=== PATIENT | female | born 1945 | race Caucasian/White ===

== ENCOUNTER 2023-08-24 10:19 | Emergency (ER) | payer OTHER, SELFPAY ==
[2023-08-24 10:35] VITALS: BP 143/88
--- NOTE | 2023-08-24 11:15 | ED.GENMED ---
History of Present Illness
<Kelly Kerr PA-C - Last Filed: 08/24/23 18:53>
General
Chief Complaint: Flank Pain
Source: patient
Exam Limitations: none
Time Seen by Provider: 08/24/23 10:53
Nursing documentation reviewed up to this point in time: agreed with
Travel History
Have you had any contact with someone who has COVID-19?: No
Do you have any symptoms of coronavirus? Fever > 100 degrees, chills, cough, shortness of breath, sore throat, loss of taste or smell, muscle aches, or headache?: No
History of Present Illness
History of Present Illness:
Patient is a 78-year-old female with history atrial fibrillation on Eliquis, CKD stage III presenting for evaluation of acute onset left lower back/flank pain. Symptoms started 2 days ago and have progressively been worsening. Patient endorses a
constant ache in her left lower back with an occasional sharp, stabbing pain worse with movement. Patient denies any alleviating factors. She denies any radiation of pain into the abdomen or down into the legs. Patient denies any fever,
nausea/vomiting, diarrhea, dysuria or hematuria. No chest pain or shortness of breath. No recent illness/virus. She has taken Tylenol for pain which leads to very minimal improvement.
Patient has no personal history of kidney stones. Her daughter does have a history of kidney stone and believes her symptoms are very similar to what she is experienced in the past.
Phy Exam
<Kelly Kerr PA-C - Last Filed: 08/24/23 18:53>
Physical Exam
Physical Exam:
General: Well appearing and non-toxic
Vitals: Mildly hypertensive, otherwise vital signs stable; afebrile
HEENT: Atraumatic, normocephalic; pupils equal round reactive light bilaterally, protecting airway
Neck: appears supple, no JVD, no midline spinal tenderness
CV: Irregular rhythm, regular rate, no evidence of cyanosis
Resp: No evidence of respiratory distress, lungs clear bilaterally
Abd: Soft, nontender in all 4 quadrants, non-distended
Extremities: No deformities, no evidence of cyanosis or edema; DP pulses palpable and strong bilaterally; strength 5 out of 5 in upper and lower extremities
Back: Tender to palpation left lower lumbar spine just to left of midline
Neuro: alert and oriented x 3, speech normal, no focal motor deficits, sensation intact;
Psych: Normal affect
Skin: Intact, no rashes or bruising
Course
<Kelly Kerr PA-C - Last Filed: 08/24/23 18:53>
Orders/Labs/Results
Orders:
Orders
08/24/23 11:42
Complete Blood Count/With Diff Urgent
Comprehensive Metabolic Panel Urgent
Serum Osmolality Urgent
08/24/23 11:44
Lumbar Spine, 2 or 3 View [CR Lumbar Spine 2 Or 3 Views] Urgent
Comment:
Reason For Exam: left paraspinal tenderness
08/24/23 11:54
Osmolality, Random Urine Urgent
Date Specimen was Collected: 08/24/23
Time Specimen was Collected: 11:52
Urinalysis Reflex To Culture Urgent
Date Specimen was Collected: 08/24/23
Time Specimen was Collected: 11:52
Urine Microscopic Reflex Cult Urgent
Urine Sodium Urgent
Date Specimen was Collected: 08/24/23
Time Specimen was Collected: 11:52
08/24/23 12:24
Add On- LAB Urgent
Tests Added?: serum osmolality, urine sodium, urine osmolality
08/24/23 14:20
Acetaminophen [Tylenol] 650 mg PO NOW STA
08/24/23 14:25
Acetaminophen [Tylenol] 650 mg .ROUTE .STK-MED ONE
Abnormal Lab Results
08/24/23 08/24/23
11:42 11:54
Absolute Neuts (auto) 7.0 H 10^3/uL
(1.4-6.5)
Lymphocytes % 19.4 L %
(20.5-51.1)
Sodium 126 L mmol/L
(135-145)
Potassium 3.4 L mmol/L
(3.5-5.1)
Chloride 90 L mmol/L
(98-107)
BUN 18 H mg/dl
(7-17)
Creatinine 1.1 H mg/dL
(0.6-1.0)
Glucose 108 H mg/dl
(70-99)
Serum Osmolality 268 L mOsm/kg
(275-300)
Leukocyte Esterase Rfl Trace A
(Negative)
Urine Sodium 98 H mmol/L
(30-90)
08/24/23 11:42
08/24/23 11:42
Vital Signs
Initial and Last Documented VS:
Initial Vital Signs
Temp Pulse Resp BP Pulse Ox
97.8 F 72 20 143/88 100
08/24/23 10:35 08/24/23 10:35 08/24/23 10:35 08/24/23 10:35 08/24/23 10:35
Last Documented Vital Signs
Temp Pulse Resp BP Pulse Ox
97.8 F 72 20 143/88 100
08/24/23 10:35 08/24/23 10:35 08/24/23 10:35 08/24/23 10:35 08/24/23 10:35
<Toy Arriaga, DO - Last Filed: 08/24/23 13:48>
Orders/Labs/Results
Orders:
Orders
08/24/23 11:42
Complete Blood Count/With Diff Urgent
Comprehensive Metabolic Panel Urgent
Serum Osmolality Urgent
08/24/23 11:44
Lumbar Spine, 2 or 3 View [CR Lumbar Spine 2 Or 3 Views] Urgent
Comment:
Reason For Exam: left paraspinal tenderness
08/24/23 11:54
Osmolality, Random Urine Urgent
Date Specimen was Collected: 08/24/23
Time Specimen was Collected: 11:52
Urinalysis Reflex To Culture Urgent
Date Specimen was Collected: 08/24/23
Time Specimen was Collected: 11:52
Urine Microscopic Reflex Cult Urgent
Urine Sodium Urgent
Date Specimen was Collected: 08/24/23
Time Specimen was Collected: 11:52
08/24/23 12:24
Add On- LAB Urgent
Tests Added?: serum osmolality, urine sodium, urine osmolality
08/24/23 14:20
Acetaminophen [Tylenol] 650 mg PO NOW STA
08/24/23 14:25
Acetaminophen [Tylenol] 650 mg .ROUTE .STK-MED ONE
Abnormal Lab Results
08/24/23 08/24/23
11:42 11:54
Absolute Neuts (auto) 7.0 H 10^3/uL
(1.4-6.5)
Lymphocytes % 19.4 L %
(20.5-51.1)
Sodium 126 L mmol/L
(135-145)
Potassium 3.4 L mmol/L
(3.5-5.1)
Chloride 90 L mmol/L
(98-107)
BUN 18 H mg/dl
(7-17)
Creatinine 1.1 H mg/dL
(0.6-1.0)
Glucose 108 H mg/dl
(70-99)
Serum Osmolality 268 L mOsm/kg
(275-300)
Leukocyte Esterase Rfl Trace A
(Negative)
Urine Sodium 98 H mmol/L
(30-90)
08/24/23 11:42
08/24/23 11:42
Vital Signs
Initial and Last Documented VS:
Initial Vital Signs
Temp Pulse Resp BP Pulse Ox
97.8 F 72 20 143/88 100
08/24/23 10:35 08/24/23 10:35 08/24/23 10:35 08/24/23 10:35 08/24/23 10:35
Last Documented Vital Signs
Temp Pulse Resp BP Pulse Ox
97.8 F 72 20 143/88 100
08/24/23 10:35 08/24/23 10:35 08/24/23 10:35 08/24/23 10:35 08/24/23 10:35
<Kelly Kerr PA-C - Last Filed: 08/24/23 18:53>
MDM/Problems Addressed
Differential Diagnosis Includes:
Muscular strain, muscular spasm, compression fracture, kidney stone, pyelonephritis, osteomyelitis
MDM/Problems Addressed:
Patient is a 78-year-old female with history A-fib on Eliquis presenting for evaluation of acute onset left lower back pain. Pain is worse with movement. No associated fever, chills, urinary symptoms, GI symptoms. No red flag back symptoms. no
radiation of pain to lower abdomen or down legs. Patient is mildly hypertensive otherwise vital signs stable, afebrile. Physical exam as document above. She does have some left lower paraspinal tenderness palpation. Abdomen soft nontender, no
CVA tenderness. Although daughter is concerned for kidney stone�do not suspect this is a cause of patient's symptoms due to location/description of pain, reproducibility of pain. Will check basic labs, urinalysis. Will get x-ray of lumbar spine.
Patient declines any analgesia at this time.
X-ray shows no acute changes, some degenerative changes of lumbar spine.
CBC without any clinically significant abnormalities. CMP shows hyponatremia with a sodium of 126-will add on serum osmolality, urine osmolality, urine sodium. Some evidence of renal insufficiency. Otherwise no clinically significant
abnormalities. Urinalysis is negative for any signs of infection or hematuria. Patient is completely asymptomatic from hyponatremia. Patient does take hydrochlorothiazide and has been consuming extra water per her daughter's recommendations based
on suspicion of kidney stone. Suspect hypovolemic hyponatremia due to hydrochlorothiazide. Discussed lab results with automotive technician instructor for input on disposition. Per nephrology recommendations, given patient is asymptomatic she is stable for discharge
with recommendations to stop hydrochlorothiazide, fluid restrict, repeat lab work in 2 days.
Patient and patient's daughter comfortable plan. Have already followed up with primary care and have lab work scheduled for . Return precautions discussed. Tylenol for likely back strain.
Chronic conditions affecting care:
Atrial fibrillation, hypertension
Acute Exacerbation and/or Progression of Chronic Illness:
Acutely hypertensive, acute hyponatremia
<Kelly Kerr PA-C - Last Filed: 08/24/23 18:53>
*Radiology
Radiology exam reviewed: preliminary read by ED provider and radiology read reviewed
*Pulse Oximetry
Patient hypoxic: no
*Biometrics Experimentalist Interpretation
Rate: Biometrics Experimentalist- N/A
*Critical Care Note
Total Time (30-74mins, 75-104mins- exclusive of procedures): Not Applicable
Data Reviewed
Review of Other/Old Records Reveals: Labs
<Kelly Kerr PA-C - Last Filed: 08/24/23 18:53>
Patient Management
Discussion with other providers: Animal Care Supervisor ([employer])
ED Attending Note
<Kelly Kerr PA-C - Last Filed: 08/24/23 18:53>
-
Portions of this chart may have been created with voice recognition software.� Occasional wrong word or��sound alike� substitutions may have occurred due to the inherent limitations of voice recognition software.
<Toy Arriaga DO - Last Filed: 08/24/23 13:48>
ED Attending Note
Patient seen and examined by attending physician: Yes
I performed a history and physical exam of patient and discussed management with resident, I reviewed resident's note and agree with documented findings and plan of care.: Yes
ED Attending Note:
I have reviewed and agree with history and treatment plan by Kelly Kerr. My exam reveals mild paraspinal tenderness at L4/L5. No step-off. Lumbar x-ray does not reveal any signs of fracture, but degenerative changes. Mild hyponatremia,
likely due to excessive water intake. Will check urine and serum osmolality as well as urine sodium. Patient will likely discontinue hydrochlorothiazide, and fluid restrict and follow-up with primary care.
Discharge Plan
Departure
Patient Disposition: Home (Routine Discharge)
Date of Disposition: 08/24/23
Time of Disposition: 14:57
Patient with high blood pressure during this ER visit?: Yes
Condition: Good
Covid-19: Not Applicable
Discharge Problem:
Low back pain, Acute hyponatremia
Instructions: Back Muscle Strain (DC), Hyponatremia (DC), BLOOD PRESSURE
Referrals:
Alida Tejeda I., DO [Active] - As needed
Venita Waldron CRNP [Family Provider] - Follow up in 2-3 days
Activity Restrictions/Additional Instructions:
- Return to the emergency department for any high fever, severe back pain, numbness/tingling, weakness, instability, altered mental status, worsening current symptoms, or any other concerns
-You can take Tylenol as needed for back discomfort. You can apply heat/ice as needed. You should follow-up with primary care for further evaluation/management
-As discussed�your sodium level was found to be low today while in the emergency department. You should stop taking your hydrochlorothiazide. You should also try to limit the amount of fluids you are drinking.
-As discussed you should follow-up with your primary care and have repeat blood work drawn in 2 days, this . You can have the sodium levels reevaluated with a basic metabolic panel or comprehensive metabolic panel
Interventions
Interventions:
*Risk Screen - Suicide Last Done: 08/24/23 10:35
*General Assessment Last Done: 08/24/23 10:35
*Neglect/Abuse Screening Last Done: 08/24/23 10:35
ED- Fall Risk Assessment Last Done: 08/24/23 15:15
*ED COVID-19 Vaccine History Last Done: 08/24/23 11:51
*Nursing Disposition Last Done: 08/24/23 15:15
CJ-Jojcbx-Gocdoturuv Assessment Last Done: 08/24/23 11:50
ED-Female Genitourinary Assessment Last Done: 08/24/23 11:50
Discharge Date and Time
Discharge Date/Time: 08/24/23 15:00
[2023-08-24 11:58] LABS: % Basophils 0.5 % (0-2); % Eosinophils 0.2 % (0-6); % Immature Granulocytes 0.4 % (0-0.5); % Lymphocytes 19.4 % (20.5-51.1); % Monocytes 6.7 % (1.7-9.3); % Neutrophils 72.8 % (42.2-75.2); Absolute Basophils 0.1 10^3/uL (0-0.2); Absolute Lymphocytes 1.9 10^3/uL (1.2-3.4); Absolute Monocytes 0.6 10^3/uL (0.1-0.6); Hematocrit 39.4 % (37.0-47.0); Hemoglobin 13.4 g/dL (12.0-16.0); Mean Corpuscular Hgb 29.6 pg (27.0-31.0); Mean Platelet Volume 10.2 fL (7.4-10.4); Nucleated Red Blood Cells % 0 %; Platelet Count 234 10^3/uL (130-400); Red Blood Cell Count 4.53 10^6/uL (4.20-5.40); Red Cell Dist. Width 12.6 % (11.5-14.5); White Blood Cell Count 9.6 10^3/uL (4.8-10.8)
[2023-08-24 12:08] LABS: Urine Albumin Negative (Neg - Trace); Urine Bilirubin Negative (Negative); Urine Character Clear (Clear); Urine Color Yellow; Urine Glucose Negative (Negative); Urine Ketone Negative (Negative); Urine Leukocyte Trace (Negative); Urine Nitrite Negative (Negative); Urine Occult Blood Negative (Negative); Urine Urobilinogen Negative (Neg - 1+); Urine pH 6.5 (5.0-9.0)
[2023-08-24 12:17] LABS: ALT (SGPT) 19 U/L (0-35); AST (SGOT) 33 U/L (14-36); Albumin 4.4 g/dl (3.5-5.0); Alkaline Phosphatase 62 U/L (38-126); Blood Urea Nitrogen 18 mg/dl (7-17); Calcium 9.6 mg/dl (8.4-10.2); Carbon Dioxide 29 mmol/L (22-30); Chloride 90 mmol/L (98-107); Glucose 108 mg/dl (70-99); Potassium 3.4 mmol/L (3.5-5.1); Sodium 126 mmol/L (135-145); Total Bilirubin 0.7 mg/dl (0.2-1.3); Total Protein 7.4 g/dl (6.3-8.2); eGFR 51.43
[2023-08-24 12:39] LABS: Urine Red Blood Cell 0-2 /HPF (0-2)
[2023-08-24 13:55] LABS: Osmolality Urine 471 mOsm/kg (300-900)
[2023-08-24 14:09] LABS: Urine Sodium 98 mmol/L (30-90)
[2023-08-24] MEDS: TYLENOL 650 MG PO (14:27)
[2023-08-24 15:17] LABS: Osmolality Serum 268 mOsm/kg (275-300)
== END 2023-08-24 15:00 | disposition home or self-care (01) ==
LOC: EMR 10:19
PROVIDERS: Physician Assistant; EMERGENCY PHYSICIAN Emergency Medicine; FAMILY PHYSICIAN Nurse Practitioner
DX: M54.50 Low back pain, unspecified (principal); E87.1 Hypo-osmolality and hyponatremia; R03.0 Elevated blood-pressure reading, without diagnosis of hypertension; I48.91 Unspecified atrial fibrillation; N18.30 Chronic kidney disease, stage 3 unspecified
CPT/HCPCS: 99284; 72100; 80053; 81003; 81015; 83930; 83935; 84300; 85025

== ENCOUNTER → 2024-04-20 13:30 | Outpatient (REF) | payer OTHER, SELFPAY | LOC: HWWDC 13:30 | PROVIDERS: ATTENDING PHYSICIAN Nurse Practitioner | DX: Z12.31 Encounter for screening mammogram for malignant neoplasm of breast (principal) | CPT/HCPCS: 77063; 77067 ==

== ENCOUNTER → 2024-09-05 12:46 | Outpatient (REF) | payer OTHER, SELFPAY | LOC: HWRCS 12:46 | PROVIDERS: ATTENDING PHYSICIAN Internal Medicine Cardiovascular Disease; FAMILY PHYSICIAN Nurse Practitioner Adult Health | DX: I10 Essential (primary) hypertension (principal); I34.0 Nonrheumatic mitral (valve) insufficiency | CPT/HCPCS: 93306 ==

== ENCOUNTER → 2024-10-09 11:06 | Outpatient (REF) | payer OTHER, SELFPAY | LOC: HWRAD 11:06 | PROVIDERS: ATTENDING PHYSICIAN Nurse Practitioner Adult Health | DX: Z78.0 Asymptomatic menopausal state (principal) | CPT/HCPCS: 77080 ==

== ENCOUNTER 2025-03-10 10:09 | Emergency (ER) | payer OTHER, SELFPAY ==
[2025-03-10 10:11] VITALS: BP 164/91
[2025-03-10 10:55] VITALS: BP 130/59
--- NOTE | 2025-03-10 13:50 | ED.GENMED ---
History of Present Illness
General
Chief Complaint: Fall
Source: patient
Exam Limitations: none
Time Seen by Provider: 03/10/25 11:26
Nursing documentation reviewed up to this point in time: agreed with
History of Present Illness
History of Present Illness:
Patient is a 79-year-old female presenting with pain and swelling of left foot. Patient states she suffered a fall 8 days ago after period of prolonged sitting when she states that her left foot had 'fallen asleep'. During the fall she struck her
foot on a plant stand. She noticed an area of localized swelling to the top of the foot almost immediately which has gradually improved. She has been able to ambulate with the help of a walker since fall, however over the past 2 days she noticed
worsening swelling along the top of her foot as well as significant bruising.
She denies any numbness/tingling in left foot. She denies any other injuries during fall.
She denies any head strike or loss of consciousness. She denies any preceding chest pain, shortness of breath, or lightheadedness. She has not had any additional falls.
Review of Systems
Review of Systems
Allergies reviewed?: Yes
All Other Systems: ROS reviewed and negative except as documented in HPI and ROS
Phy Exam
Physical Exam
Physical Exam:
Vitals: Tachycardic and hypertensive on initial evaluation, improved by my assessment. Afebrile
General: Patient is well appearing, no acute distress
Skin: Warm and dry, no rashes or lesions
Head: Normocephalic, atraumatic
Throat: Protecting airway
Neck: Normal ROM, no cervical spine tenderness
Cardiac: Regular rate
Pulm: No apparent respiratory distress
Abdomen: Nondistended
Extremities: Somewhat diffuse edema and generalized tenderness of left dorsal foot with more focal area of swelling/reproducible pain at base of left fifth metatarsal. Ecchymoses of left lateral foot. No bony tenderness of left medial/lateral
malleolus, calcaneus, head of left fibula. Achilles intact. No pitting edema, erythema, or tenderness of left calf. Excellent range of motion left knee without pain. Sensation intact. 2+ palpable left DP and PT pulse. Cap refill WNL.
Neuro: Grossly intact
Psychiatric: Normal affect.
Course
Orders/Labs/Results
Orders:
Orders
03/10/25 10:14
CR Foot - Left Min 3 Views Urgent
Comment:
Reason For Exam: fall, swelling
03/10/25 11:49
Ortho Boot Left- Treatment ONCE
Short or tall?: Short
Vital Signs
Initial and Last Documented VS:
Initial Vital Signs
Temp Pulse Resp BP Pulse Ox
97.9 F 118 18 164/91 99
03/10/25 10:11 03/10/25 10:11 03/10/25 10:11 03/10/25 10:11 03/10/25 10:11
Last Documented Vital Signs
Temp Pulse Resp BP Pulse Ox
97.9 F 78 16 130/59 100
03/10/25 10:11 03/10/25 10:58 03/10/25 10:58 03/10/25 10:55 03/10/25 13:51
MDM/Problems Addressed
Differential Diagnosis Includes:
Not limited to: Foot fracture, ankle/foot sprain, Lisfranc injury, contusion, etc.
MDM/Problems Addressed:
79-year-old female with eight days of progressively worsening foot pain/swelling after fall. She has been able to weight bear with the assistance of walker. There was no head strike or other injuries sustained. Vitals and physical exam as above.
There is generalized edema of left dorsal foot with area of focal tenderness/swelling near base of left 5th metatarsal. LLE neurovascular intact. No calf tenderness or swelling. She has full range of motion in left hip and left knee without pain.
X-ray of left foot was obtained which reveals very subtle lucency at base of left fifth metatarsal with concern for fracture versus possible nutrient channel. However � given known trauma and exam, suspect Matute fracture. No evidence of
neurovascular compromise. Will place patient in ortho boot and arrange orthopedic follow up. She has a walker to use as needed for ambulation. Advised rest, ice, Tylenol for pain. Patient comfortable with plan.
Chronic conditions affecting care:
N/A
Acute Exacerbation and/or Progression of Chronic Illness:
N/A
*Radiology
Radiology exam reviewed: radiology read reviewed
*Pulse Oximetry
SaO2: 100
Oxygen Mode of Delivery: Room air
Patient hypoxic: no
*EKG
Interpreted by ED Provider?: NA
*Music Professor Interpretation
Rate: Music Professor- N/A
*Critical Care Note
Total Time (30-74mins, 75-104mins- exclusive of procedures): Not Applicable
ED Attending Note
-
Portions of this chart may have been created with voice recognition software.� Occasional wrong word or��sound alike� substitutions may have occurred due to the inherent limitations of voice recognition software.
Discharge Plan
Departure
Patient Disposition: Home (Routine Discharge)
Date of Disposition: 03/10/25
Time of Disposition: 11:51
Patient with high blood pressure during this ER visit?: Yes
Condition: Good
Discharge Problem:
Fracture of fifth metatarsal bone of left foot
Instructions: Foot Fracture ED
Referrals:
Tim Davis MD [Active, Orthopedics] - Call in 1-3 days for appt
Araseli Box CRNP [Family Provider, General]
Activity Restrictions/Additional Instructions:
RETURN TO THE EMERGENCY DEPARTMENT WITH ANY FEVERS OR CHILLS, NUMBNESS/TINGLING IN LEFT FOOT, SIGNIFICANT PAIN, SWELLING OF LEFT CALF, WORSENING IN CURRENT SYMPTOMS, OR ANY OTHER SYMPTOMS CONCERNING TO YOU
- The x-ray of your left foot shows a suspected fracture of the base of your fifth metatarsal. Please continue to wear boot and ambulate as tolerated. Please ice, elevate and take Tylenol as needed for pain.
- Follow-up with your resource paraprofessional or orthopedic for further evaluation/management. The contact information for an orthopedic has been provided to you above.
Monitor your symptoms closely and return to the emergency department with any acute worsening/new symptoms or any other concerns
Interventions
Interventions:
*Risk Screen - Suicide Last Done: 03/10/25 10:11
*General Assessment Last Done: 03/10/25 10:11
*Neglect/Abuse Screening Last Done: 03/10/25 10:11
*ED- Fall Risk Assessment Last Done: 03/10/25 10:52
*ED COVID-19 Vaccine History Last Done: 03/10/25 10:11
*Nursing Disposition Last Done: 03/10/25 12:00
ED-Musculoskeletal Assessment Last Done: 03/10/25 10:58
ED- Neurological Assessment Last Done: 03/10/25 10:58
ED-Skin Assessment Last Done: 03/10/25 10:58
Discharge Date and Time
Discharge Date/Time: 03/10/25 12:01
Print Language: SLOVENIAN
== END 2025-03-10 12:01 | disposition home or self-care (01) ==
LOC: EMR 10:09
PROVIDERS: EMERGENCY PHYSICIAN Emergency Medicine; FAMILY PHYSICIAN Nurse Practitioner Adult Health
DX: S92.352A Displaced fracture of fifth metatarsal bone, left foot, initial encounter for closed fracture (principal); W19.XXXA Unspecified fall, initial encounter
CPT/HCPCS: 99283; 73630

== ENCOUNTER → 2025-04-23 10:53 | Outpatient (REF) | payer OTHER, SELFPAY | LOC: HWWDC 10:53 | PROVIDERS: ATTENDING PHYSICIAN Nurse Practitioner Adult Health | DX: Z12.31 Encounter for screening mammogram for malignant neoplasm of breast (principal) | CPT/HCPCS: 77063; 77067 ==